=== PATIENT | female | born 1940 | race Caucasian/White ===

== ENCOUNTER 2020-11-19 13:16 | Outpatient (CLI) | payer MEDICARE, SELFPAY ==
--- NOTE | ~2020-11-19 | US_ITS ---
EXAMINATION: US carotid duplex BI DATE: 11/19/2020 14:43 INDICATION: Bilateral carotid bruits TECHNIQUE: Grayscale, color Doppler, and pulsed Doppler images of the cervical carotid arteries were obtained. The degree of vessel stenosis is placed in one of the following categories: normal, <50%, 5 0-69%, >=70% but less than near-occlusion, near-occlusion, or total occlusion. Note that percent sten osis relative to normal distal artery lumen diameter is indirectly measured from velocity measurement s as described by Philippe, et al. Radiology 2003; 229:340-346. Notes: Normal: Peak systolic velocity <125 centimeters/sec and no plaque <50%. Peak systolic velocity <125 ( EDV <40; ICA/CCA PSV ratio <2.0; used these factors only a tandem lesions or low cardiac output or co ntralateral disease) 50-69 %: PSV 125-230 (EDV 40-100; ratio 2-4) >= 70% but less than near occlusion: PSV greater than 230 (EDV > 100; ratio> 4.0) Near Occlusion: PSV that is variable; markedly narrowed lumen Occlusion: Absent flow on color/spectral Doppler and no lumen on magaña scale. COMPARISON: None. FINDINGS: RIGHT: The right common carotid artery (CCA) peak systolic velocity (PSV) is 85 cm/s. The right internal car otid artery (ICA) PSV is 88 cm/s. The right ICA end-diastolic velocity (EDV) is 17 cm/s. The right IC A/CCA PSV ratio is 1.0. The external carotid artery (ECA) PSV is 222 cm/s. There is antegrade flow in the right vertebral artery. LEFT: The left CCA PSV is 80 cm/s. The left ICA PSV is 101 cm/s. The left ICA EDV is 15 cm/s. The left ICA/ CCA PSV ratio is 1.3. The ECA PSV is 94 cm/s. There is antegrade flow in the left vertebral artery. IMPRESSION: 1. Less than 50% stenosis in the right internal carotid artery by sonographic criteria. 2. Less than 50% stenosis in the left internal carotid artery by sonographic criteria. Reviewed, dictated and finalized at location A. IMPRESSION: 1. Less than 50% stenosis in the right internal carotid artery by sonographic eula tsai. 2. Less than 50% stenosis in the left internal carotid artery by sonographic norberto rodríguez.
--- NOTE | ~2020-11-19 | XR_ITS ---
EXAMINATION: XR chest 2V DATE: 11/19/2020 14:38 INDICATION: Left lung crackles and shortness of breath. TECHNIQUE: PA view of the chest was obtained. COMPARISON: None FINDINGS: The lungs are clear with no focal airspace opacities, pulmonary edema, pleural effusion or pneumothor ax. Cardiomegaly. Tapering of the lateral right clavicle likely sequela of prior distal clavicle exci sonja. IMPRESSION: 1. Cardiomegaly. No other acute cardiopulmonary disease. Reviewed, dictated and finalized at location A.
== END 2020-11-19 13:17 | disposition home or self-care (01) ==
LOC: CHSIMG 13:21
PROVIDERS: PCP Internal Medicine; Visit Provider Internal Medicine
DX: R09.89 Other specified symptoms and signs involving the circulatory and respiratory systems (principal)
CPT/HCPCS: 71046; 93880

== ENCOUNTER 2020-11-27 07:47 | Outpatient (CLI) | payer MEDICARE, SELFPAY ==
--- NOTE | 2020-11-27 07:54 | ECHO_ITS ---
Patient Info Name: Felicia Hamilton Age: 80 years : 1940 Gender: Female Ht: 60 in Wt: 138 lbs BSA: 1.65 m2 HR: 65 bpm BP: 201 / 59 mmHg Heart Rhythm: Sinus Rhythm Technical Quality: Good Exam Date: 11/27/2020 7:46 AM Exam Location: [facility] Patient Status: Outpatient Admit Date: 11/27/2020 Staff Ordering Physician: Yasmine Paz MD Clerical Adviser: Maylin Schmitt RDCS Attending Provider: Yasmine Paz MD Referring Physician: Jackson URBINA; Exam Type: CA echo doppler color flow Study Info Indications I51.7 - Cardiomegaly R06.00 - Dyspnea, unspecified Complete two-dimensional, color flow and Doppler transthoracic echocardiogram is performed. Strain analysis performed. History/Risk Factors Hypertension: No Congenital Heart Disease (CHD): No Peripheral Arterial Disease (PAD): No Myocardial Infarction (IN): No Chronic Lung Disease: No Obesity: No Renal Disease: No Coronary Artery Disease (CAD) No Congestive Heart Failure (CHF): No Cardiomyopathy/LV Systolic Dysfunction: No Diabetes Mellitus: No Tobacco Use: Former Cerebrovascular Disease: No Family History: Coronary Artery Disease Deep Vein Thrombosis (DVT): None Dialysis: None Frailty Scale (CSHA): 2: Well Cardiac Arrest: No Summary 1. Complete two-dimensional, color flow and Doppler transthoracic echocardiogram is performed. 2. Left ventricular chamber dimension is normal. 3. Left ventricular systolic function is normal, estimated at 60-65%. 4. There is moderately increased left ventricular wall thickness. 5. The left ventricular diastolic function is abnormal. 6. E/e' 18 is elevated. 7. Global longitudinal strain is normal at -17.0%. 8. Left atrial chamber dimension is moderately enlarged. 9. There is mild to moderate aortic valve regurgitation. 10. There is mild to moderate mitral valve regurgitation. 11. There is trace tricuspid valve regurgitation. 12. No pulmonary hypertension, estimated pulmonary arterial systolic pressure is 35 mmHg. 13. There is small circumferential pericardial effusion. Left Ventricle E/e' 18 is elevated. Global longitudinal strain is normal at -17.0%. Left ventricular chamber dimension is normal. Left ventricular systolic function is normal, estimated at 60-65%. There is moderately increased left ventricular wall thickness. The left ventricular diastolic function is abnormal. Right Ventricle Right ventricular chamber dimension is normal. Right ventricular systolic function is normal. Left Atria Left atrial chamber dimension is moderately enlarged. Right Atria Right atrial chamber dimension is normal. Aortic Valve The aortic valve is trileaflet. There is no aortic valve stenosis. There is mild to moderate aortic valve regurgitation. Pulmonic Valve There is no pulmonic regurgitation. Mitral Valve There is no mitral valve stenosis. There is mild to moderate mitral valve regurgitation. Tricuspid Valve There is trace tricuspid valve regurgitation. No pulmonary hypertension, estimated pulmonary arterial systolic pressure is 35 mmHg. Pericardium/Pleural There is small circumferential pericardial effusion. Inferior Vena Cava Normal inferior vena cava with >50% collapse upon inspiration consistent with normal right atrial pressure, 5 mmHg. Aorta The aortic root size at the sinus of Valsalva is normal. Left Ventricular Outflow T
== END 2020-11-27 07:48 | disposition home or self-care (01) ==
LOC: CHSIMG 07:49
PROVIDERS: PCP Internal Medicine; Visit Provider Internal Medicine
DX: R06.00 Dyspnea, unspecified (principal); I51.7 Cardiomegaly
CPT/HCPCS: 93306

== ENCOUNTER 2023-01-23 08:14 | Outpatient (CLI) | payer MEDICARE, SELFPAY ==
--- NOTE | ~2023-01-23 | US_ITS ---
Limited Abdominal Sonogram: Real-time sonographic imaging of the right upper quadrant was performed. Clinical History: Right upper quadrant pain Findings: The liver appears mildly echogenic/heterogeneous, with no evidence of mass lesion or bile duct dilatation. Main portal vein demonstrates normal direction of flow. The gallbladder is well dist ended, and contains an echogenic, shadowing gallstone. No gallbladder wall thickening. The common fransisco e duct measures 6 mm. The visualized pancreas, aorta, and IVC are unremarkable. Impression: Cholelithiasis. Probable diffuse fatty infiltration of liver. Reviewed, dictated and finalized at location M. Impression: Cholelithiasis. Probable diffuse fatty infiltration of liver.
== END 2023-01-23 08:15 | disposition home or self-care (01) ==
LOC: CHSIMG 08:17
PROVIDERS: PCP Internal Medicine; Visit Provider Internal Medicine
DX: R10.11 Right upper quadrant pain (principal); K80.20 Calculus of gallbladder without cholecystitis without obstruction
CPT/HCPCS: 76705

== ENCOUNTER 2023-02-02 07:35 | Outpatient (CLI) | payer MEDICARE, SELFPAY ==
--- NOTE | ~2023-02-02 | NM_ITS ---
EXAMINATION: NM hepatobiliary w pharm DATE: 02/02/2023 10:16 INDICATION: Right upper quadrant abdominal pain. Cholelithiasis. COMPARISON: Ultrasound 01/23/2023 TECHNIQUE: 5.3 mCi Tc-99m mebrofenin (Choletec) was administered intravenously. Scintigraphic images of the abdomen were obtained for one hour. Then, 1.1 mcg sincalide (Kinevac) IV was administered, an d imaging was continued for 30 minutes. FINDINGS: There is normal clearance of radiotracer from the blood pool. There is homogeneous tracer u ptake by the liver. Activity progresses to the bowel and gallbladder. Gallbladder ejection fraction (GBEF) was 19%. Note that most patients with gallbladder dysfunction have GBEF < 35%, which overlaps with the broad normal range of 10-90%. IMPRESSION: 1. Gallbladder ejection fraction in the lower range of normal. Note that this value overlaps with th e range of values that may be seen with gallbladder dysfunction and/or chronic cholecystitis if there is appropriate clinical correlation. Reviewed, dictated and finalized at location A. IMPRESSION: 1. Gallbladder ejection fraction in the lower range of normal. Note that this value overlaps with the range of values that may be seen with gallbladder dysfu nction and/or chronic cholecystitis if there is appropriate clinical correlatio nToby
== END 2023-02-02 07:36 | disposition home or self-care (01) ==
LOC: CHSIMG 07:37
PROVIDERS: PCP Internal Medicine; Visit Provider Internal Medicine
DX: R10.11 Right upper quadrant pain (principal); K80.20 Calculus of gallbladder without cholecystitis without obstruction
CPT/HCPCS: 78227; A9537; J2805

== ENCOUNTER 2023-02-18 11:21 | Outpatient (CLI) | payer MEDICARE, SELFPAY ==
[2023-02-18 12:31] LABS: Alanine Aminotransferase 16 U/L (6-35); Albumin Level 4.4 g/dL (3.5-5.1); Alkaline Phosphatase 44 U/L (38-126); Amylase 114 U/L (30-110); Aspartate Amino Transferase 26 U/L (14-36); Bilirubin,Total 0.8 mg/dL (0.2-1.3); Lipase 216 U/L (23-300)
== END 2023-02-18 11:22 | disposition home or self-care (01) ==
LOC: ANHSURGERY 11:24
PROVIDERS: PCP Internal Medicine; Visit Provider Surgery
DX: K80.20 Calculus of gallbladder without cholecystitis without obstruction (principal); Z01.818 Encounter for other preprocedural examination
CPT/HCPCS: 36415; 80076; 82150; 83690; 86850; 86900; 86901

== ENCOUNTER 2023-02-23 01:44 | Day surgery (SDC) | payer MEDICARE, SELFPAY ==
[2023-02-12 14:19] VITALS: BMI 24.0
--- NOTE | 2023-02-12 14:49 | PC.NURSE ---
Addendum entered by Yola Sun RN 02/12/23 14:51: TIESHA HUTCHINS AM OF SURGERY Original Note: PRE-OP INSTRUCTIONS, PLEASE READ CAREFULLY Report to the Outpatient Waiting Room, entrance under the green pavilion located off [facility], at time _1000_ on date _02/23/23_. Planned Procedure Time: _1200_. Time changes happen often and if your time is changed the preop area will call you the afternoon before. - You and your visitor will be asked to self-screen and do not enter if you have any COVID symptoms. - A mask is optional within the hospital at this time. Patients may have clear liquids (water, carbonated beverages, clear teas, apple juice) until 3 hours prior to surgery with a maximum of 20 ounces. - No food from midnight until time of surgery Take the following medications with a SIP of water the morning of surgery: _AMLODIPINE, & TYLENOL IF NEEDED__ DO NOT STOP ANY OF YOUR OTHER PRESCRIPTION MEDICATIONS PRIOR TO SURGERY ?EXCEPT THE FOLLOWING Medications to discontinue per ANESTHESIA - _ALL VITAMINS 3 DAYS PRIOR TO SURGERY, Date to take last dose 02/19/23_ Please no make-up, nail frisian, hairspray, perfume, deodorant, or body powder the day of surgery. No jewelry (including any body piercings) or valuables the day of surgery, leave them at home. Please take a shower or bath the night before, or the morning of, surgery with an antibacterial soap. Wear comfortable, loose fitting clothing. - Jewelry must be removed prior to entering the operating room. Rings and piercings that are not removed may be cut off. - The hospital will not accept responsibility for valuables. - Please leave all valuables, including medications, at home the day of surgery. If you are going home after surgery, a licensed otr van cdl truck driver must drive you home. - NO public transportation without another adult if you receive anesthesia. - We recommend that an adult stay with you for 24 hours following discharge. - We also recommend that you do not drive, make important decision, drink alcoholic beverages, or take any drugs that were not prescribed by your health care provider for at least 24 hours after your discharge time. Follow any additional instructions given to you from your surgeon. If you or anyone in your household have experienced Covid symptoms in the past week, please notify your surgeon or the nurse liaison at the phone number below for possible testing. Telephone instructions given to _PATIENT_and asked if any additional questions and then verbalized understanding. Patient advised to call surgeon office or pre surgery nurse liaison [phone] if any additional questions.
[2023-02-23] VITALS (9 sets, daily range): BP systolic 138–176; BP diastolic 37–60; PULSE 65–89; RESP 14–17; TEMP 36.1–36.6; O2SAT 96–100
--- NOTE | 2023-02-23 10:28 | WPDANESEPPF ---
Anes - Initial Pre Proc Eval Procedure: Operation Date: 02/23/23 12:00 Proposed Procedures p Laparoscopic Cholecystectomy, Possible Open - Vijay Rebollar DO Date/Time: 02/23/23 10:28 Surgeon: Vijay Rebollar DO Pre Op Diagnosis: Symp Cholelithiasis Patient Data Age: 82 Gender: F Height: 1.52 m Weight: 55.5 kg Last Vital Signs Temp 36.1 C L 02/23/23 10:12 Pulse 75 02/23/23 10:12 Resp 16 02/23/23 10:12 BP 151/37 H 02/23/23 10:12 Pulse Ox 100 02/23/23 10:12 O2 Del Method Room Air 02/23/23 10:12 Allergies Allergy/AdvReac Type Severity Reaction Status Date / Time No Known Allergies Allergy Verified 02/12/23 14:14 Home Medications Medication Instructions Recorded Confirmed Type amlodipine 10 mg tablet 10 mg PO DAILY 07/03/21 02/12/23 History calcium carbonate 600 mg-vitamin 1 cap PO DAILY 07/03/21 02/12/23 History D3 12.5 mcg (500 unit) capsule (Calcium 600 with Vitamin D3) latanoprost 0.005 % eye drops 1 drp EACH EYE HS 07/03/21 02/12/23 History losartan 50 mg tablet 50 mg PO DAILY 07/03/21 02/12/23 History multivitamin (Daily Multi-Vitamin 1 tablet PO DAILY 07/03/21 02/12/23 History tablet) multivitamin with minerals 1 tablet PO DAILY 07/03/21 02/12/23 History (Hair,Skin and Nails tablet) vitamin B complex (B 1 tablet PO DAILY 07/03/21 02/12/23 History Complex-Vitamin B12 tablet) acetaminophen 650 mg 1,300 mg PO Q8H PRN Pain 02/12/23 02/12/23 History tablet,extended release (Tylenol 8 Hour) pantoprazole 40 mg tablet,delayed 40 mg PO BID 02/12/23 02/12/23 History release (Protonix) Patient hx anesthesia problems: none Family hx anesthesia problems: none Results Review: All pre-operative results and documents have been reviewed as part of the pre-operative evaluation. [facility] Past Medical History Medical History Arthritis Cataract Heart disease History of vaginal delivery Hypertension POAG (primary open-angle glaucoma) Surgical History Surgical History H/O rotator cuff surgery S/P cervical disc replacement [place] teeth removed Family History Family History Mother Carcinoma of colon Father Heart disease Sibling Scleroderma Other Family history of malignant neoplasm Social History Social History Smoking status: Former smoker Tobacco type: cigarettes Second hand tobacco smoke exposure: No Smoking end date: 07/20/09 Additional smoking assessment comments: STATES SMOKED 1/2-1PK/DAY/40-45YRS Alcohol intake: never Substance use: never Substance use type: does not use Living arrangements: alone Spiritual care concerns: No Anes - Eval Final PreProcedure Day of Procedure 02/23/23 10:28 Patient weight: normal Heart: regular rate and rhythm and murmur Lungs: clear to auscultation Airway: Mallampati scale class II Neurological: other (alert) Last oral intake: >/= 8 hours ASA classification: III Emergent: no Anesthetic plan: proceed Anesthesia type and monitoring: general ETT and standard monitoring Results Review: All pre-operative results and documents have been reviewed as part of the pre-operative evaluation. Informed Consent: The patient's anesthetic plan and its attendant risks and benefits were discussed with the patient/family/POA. Questions were solicited and answers provided to the satisfaction of the patient/family/POA.
[2023-02-23] MEDS: LACTATED RINGERS 1,000 ML 30 ML IV CONT (11:17)
[2023-02-23] MEDS: KETOROLAC 15 MG/ML VIAL (*BKC) IV PUSH (11:18)
--- NOTE | 2023-02-23 11:49 | WPDHPUPDATE1 ---
History and Physical Update Update Date/Time: 02/23/23 11:49 History and Physical has been reviewed, including an updated exam of the patient. There are NO changes in the patient's condition. Risks, benefits, and alternatives have been discussed and questions answered. Patient agrees to proceed with procedure.
--- NOTE | 2023-02-23 12:13 | ECG_ITS ---
Measurements Intervals [place] Rate: 80 P: 51 ME: 162 QRS: 18 QRSD: 89 T: 44 QT: 389 QTc: 449 Interpretive Statements SINUS RHYTHM POSSIBLE LEFT ATRIAL ENLARGEMENT [-0.1mV P WAVE IN V1/V2] ST DEVIATION AND MODERATE T-WAVE ABNORMALITY, CONSIDER ANTERIOR ISCHEMIA [-0.1+ mV T WAVE IN V3/V4] ABNORMAL ECG NO PREVIOUS ECG AVAILABLE FOR COMPARISON Electronically Signed On 02-23-2023 14:09:16 CDT by Rod Garcia M.D.
[2023-02-23] MEDS: METOPROLOL TARTRATE INJ 5 MG/5 ML VIAL 2.5 MG IV PUSH (12:41)
[2023-02-23] MEDS: NITROGLYCERIN OINTMENT 1 INCH DOSE TRANSDERM (12:50)
--- NOTE | 2023-02-23 13:16 | SUR.PHASEI ---
DR. ERVIN HERE TO SEE PT AND DTR THANH UPDATED. PT SYMPTOMS OF EPIGASTRIC DISCOMFORT IMPROVED.
--- NOTE | 2023-02-23 13:42 | PM.CNCAR ---
Assessment and Plan Assessment and plan (1) Chest pain: Code(s): R07.9 - Chest pain, unspecified Status: Acute Plan This is an 82-year-old woman who is not known to have coronary disease I follow her in the office because of asymptomatic AI. As she was being prepared for gallbladder surgery today she developed some chest pain and had some precordial T-wave abnormalities which are raising some concern. She is currently asymptomatic. She is not reporting any exertional pain typical of angina. I am going to recommend arranging for her to have a Lexiscan nuclear stress test as an outpatient to screen for evidence significant coronary disease. Obviously today's operation will be canceled pending those findings Rod Garcia MD [facility] History of Present Illness History of Present Illness Consult date/time: 02/23/23 13:42 Reason For Visit: Symp Cholelithiasis Narrative: This is a very pleasant 82-year-old woman who I follow in the office because of aortic valve regurgitation. I am seeing her in the postanesthesia care unit at today because of some chest pain that she experienced ago as she was anticipating cholecystectomy. She is not known to have coronary artery disease prior to this. She follows with me in the office because of aortic regurgitation which she has been known to have for several years. She has of moderate aortic regurgitation with normal left ventricular size and hyperdynamic systolic function and with her valvular disease she has been asymptomatic. I just saw her in the office as it happens on 02/05/2023 at which time she says she was feeling well and was asymptomatic. Today she was admitted to the hospital for a laparoscopic cholecystectomy she was been found to have gallstones that were causing some mid epigastric to right upper quadrant pain off and on for the last couple of months. She says that the symptoms do not occur in exertional fashion. She had some of this pain while she was being taken down the hallway to start her operation an electrocardiogram was done which demonstrated some biphasic precordial T-wave abnormalities which were not seen on prior ECGs. She was placed given some nitro paste and a beta-jessica and she became asymptomatic she feels well now and does not have any complaints PMFSH Past Medical History Medical History Arthritis Cataract Heart disease History of vaginal delivery Hypertension POAG (primary open-angle glaucoma) Surgical History Surgical History H/O rotator cuff surgery S/P cervical disc replacement [place] teeth removed Family History Family History Mother Carcinoma of colon Father Heart disease Sibling Scleroderma Other Family history of malignant neoplasm Social History Social History Smoking status: Former smoker Tobacco type: cigarettes Second hand tobacco smoke exposure: No Smoking end date: 07/20/09 Additional smoking assessment comments: STATES SMOKED 1/2-1PK/DAY/40-45YRS Alcohol intake: never Substance use: never Substance use type: does not use Living arrangements: alone Spiritual care concerns: No Meds Home Medications and Allergies Home Medications Medication Instructions Recorded Confirmed Type amlodipine 10 mg tablet 10 mg PO DAILY 07/03/21 02/23/23 History calcium carbonate 600 mg-vitamin 1 cap PO DAILY 07/03/21 02/23/23 History D3 12.5 mcg (500 unit) capsule (Calcium 600 with Vitamin D3) latanoprost 0.005 % eye drops 1 drp EACH EYE HS 07/03/21 02/23/23 History losartan 50 mg tablet 50 mg PO DAILY 07/03/21 02/23/23 History multivitamin (Daily Multi-Vitamin 1 tablet PO DAILY 07/03/21 02/23/23 History tablet) multivitamin with minerals 1 tablet PO DAILY 07/03/21 0
--- NOTE | 2023-02-23 13:51 | SUR.PHASEII ---
Nitroglycerin patch removed per anesthesia order.
== END 2023-02-23 14:01 | disposition home or self-care (01) ==
PROVIDERS: PCP Internal Medicine; Visit Provider Surgery
PROC: 0FT44ZZ Resection of Gallbladder, Percutaneous Endoscopic Approach (ICD-10-PCS; CPT 47562; principal; 2023-02-23 12:00)
DX: K80.20 Calculus of gallbladder without cholecystitis without obstruction (principal); R07.9 Chest pain, unspecified; R94.31 Abnormal electrocardiogram [ECG] [EKG]; I11.9 Hypertensive heart disease without heart failure; Z87.891 Personal history of nicotine dependence; Z53.09 Procedure and treatment not carried out because of other contraindication
CPT/HCPCS: 47562; 36415; 80076; 82150; 83690; 86850; 86900; 86901; 93005; A9270; J1885; J3010; J7030; J7120

== ENCOUNTER 2023-03-02 11:43 | Inpatient (IN) | payer MEDICARE, SELFPAY ==
[2023-03-02] VITALS (13 sets, daily range): BP systolic 112–165; BP diastolic 46–85; PULSE 65–88; RESP 15–20; TEMP 36.6; O2SAT 93–100; BMI 25.3
--- NOTE | 2023-03-02 11:48 | ECG_ITS ---
Measurements Intervals [place] Rate: 63 P: 61 DC: 158 QRS: 31 QRSD: 90 T: 46 QT: 406 QTc: 416 Interpretive Statements SINUS RHYTHM WITH OCCASIONAL VENTRICULAR PREMATURE COMPLEXES POSSIBLE LEFT ATRIAL ENLARGEMENT [-0.1mV P WAVE IN V1/V2] ST AND T-WAVE ABNORMALITY CONSIDER ANTERIOR ISCHEMIA ABNORMAL ECG NO PREVIOUS ECG AVAILABLE FOR COMPARISON Electronically Signed On 03-02-2023 17:03:01 CDT by Rod Garcia M.D.
[2023-03-02 12:01] LABS: Basophils Percent Auto 0.4 % (0.2-1.2); Eosinophils Absolute Auto 0.1 K/mm3 (0-0.3); Eosinophils Percent Auto 1.3 % (0-4.4); Hematocrit 40.6 % (42.0-52.0); Hemoglobin 13.2 g/dL (14.0-18.0); Immature Granulocyte Absolute 0.03 K/mm3 (0.00-0.031); Immature Granulocyte Percent A 0.4 % (0-0.5); Lymphocytes Absolute Auto 2.95 K/mm3 (0.9-3.2); Lymphocytes Percent Auto 35.5 % (18.3-44.2); Mean Corpuscular HGB Conc 32.5 g/dl (32-36); Mean Corpuscular Hemoglobin 30.2 pg (26-34); Mean Corpuscular Volume 92.9 fl (80-100); Mean Platelet Volume 9.8 fl (7.4-10.4); Monocytes Absolute Auto 0.7 K/mm3 (0.1-0.6); Monocytes Percent Auto 8.4 % (2.6-8.5); Neutrophils Absolute Auto 4.5 K/mm3 (1.3-6.7); Platelet Count Result 254 k/mm3 (150-375); Red Blood Count 4.37 M/mm3 (4.6-6.20); Red Cell Distribution Width 13.2 % (11.5-14.5); White Blood Count 8.3 K/mm3 (4.5-10.0)
[2023-03-02] MEDS: ASPIRIN 81 MG CHEWABLE TABLET 324 MG PO (12:03)
--- NOTE | 2023-03-02 12:11 | ED.CHESTPAIN ---
HPI - Chest Pain General Chief Complaint: Chest Pain Stated Complaint: CP during stress test History of Present Illness HPI narrative: Patient is an 82-year-old female who presents to the ER from the nuclear stress lab after having EKG changes and chest pain. EKG here shows ST elevation. Patient is pain-free at this time. STEMI activated. Patient reports she has been having intermittent pain over the last couple months especially with exertion. She did have some slight chest pain upon arrival to the hospital today prior to her stress test. No dyspnea at this time. No fevers or chills or sweats. Related Data Home Medications Medication Instructions Recorded Confirmed Lactobacillus 1 cap PO DAILY 03/02/23 03/02/23 acidophilus-Bifidobac.animalis 2.5 billion cell capsule (Daily Probiotic) amlodipine 10 mg tablet 10 mg PO DAILY 03/02/23 03/02/23 calcium carb-vit D3-minerals 600 1 tablet PO DAILY 03/02/23 03/02/23 mg calcium-400 unit tablet latanoprost 0.005 % eye drops 1 drp EACH EYE HS 03/02/23 03/02/23 losartan 50 mg tablet 50 mg PO DAILY 03/02/23 03/02/23 ykgolyda-tvou-jntd 8 mg-folic 400 1 tablet PO DAILY 03/02/23 03/02/23 mcg-K 50 mcg-lutein 300 mcg tablet (Centrum Silver Women) multivitamin with minerals 1 tablet PO DAILY 03/02/23 03/02/23 (Hair,Skin and Nails tablet) pantoprazole 40 mg tablet,delayed 40 mg PO BID 03/02/23 03/02/23 release vitamin B complex (B 1 tablet PO DAILY 03/02/23 03/02/23 Complex-Vitamin B12 tablet) Allergies Allergy/AdvReac Type Severity Reaction Status Date / Time No Known Allergies Allergy Verified 03/02/23 11:56 Review of Systems Review of Systems: All systems reviewed & are unremarkable except as noted in HPI and below Constitutional: Constitutional: Denies chills and Denies fever(s) ENT: Denies nasal congestion and Denies sore throat Cardiovascular: Cardiovascular: Reports chest pain, Denies rapid heart rate and Denies radiating jaw, neck or arm pain Respiratory: Respiratory: Denies cough and Denies dyspnea Gastrointestinal: Gastrointestinal: Denies abdominal pain, Denies nausea and Denies vomiting Neurologic: Denies syncope, Denies headache(s), Denies focal weakness and Denies numbness PMFSH Past Medical History Medical History (Updated 03/02/23 @ 20:27 by Kameron Blanco MD) Essential hypertension Surgical History Surgical History (Updated 03/02/23 @ 20:28 by Kameron Blanco MD) No pertinent past surgical history Social History Social History Smoking status: Former smoker Alcohol intake: never Substance use: never Lack of Transportation: No Lack of Food: Never True Current Housing: I Have Housing Concerned About Future Housing: No Difficulty Paying Gas/Electric Bills: No Difficulty Paying for Meds: No Currently Unemployed: No Education: Decline to Answer Difficulty w/ Childcare or Family Care: No Spiritual care concerns: No Exam Narrative: GENERAL: Well-appearing, well-nourished, and in no acute distress. HEAD: Normocephalic, atraumatic. EYES: PERRL and EOMI. ENT: Mucous membranes moist. CHEST: Clear to auscultation. No respiratory distress. HEART: Regular rate and rhythm. Normal peripheral pulses. ABDOMEN: Soft, nontender, nondistended. EXTREMITIES: Normal range of motion. No edema. SKIN: Warm, dry, no rash. NEURO: Alert and oriented x3. PSYCH: Normal mood and affect. Course Course Emergency Course: STEMI activated. Cardiology at bedside have decided to take the patient to the [facility]. Patient received aspirin down here and they will give additional medications in the [facility]. Vital Signs Vital signs: Vital Signs Temperature 97.8 F 03/02/23 11:43 Pulse Rate 73 03/02/23 11:43 Respiratory Rate 18 03/02/23 11:43 Blood Pressure 146/48 H 03/02/23 11:43 Pulse Oximetry 100 03/02/23 11:43 Oxygen Delivery Room Air 03/02/23 11:43 Temperature 97.8 F
[2023-03-02 12:12] LABS: Alanine Aminotransferase 16 U/L (6-50); Albumin Level 4.2 g/dL (3.5-5.1); Alkaline Phosphatase 51 U/L (38-126); Anion Gap 6 mmol/L (8-16); Aspartate Amino Transferase 26 U/L (17-59); Blood Urea Nitrogen 23 mg/dL (9-20); Calcium 9.4 mg/dL (8.4-10.2); Carbon Dioxide 26 mmol/L (22-30); Chloride 105 mmol/L (98-107); Estimated CRCL calculation 36 ml/min; Estimated Glomerular Filt Rate > 60; Glucose 132 mg/dL (65-110); INR 0.9; Potassium 4.3 mmol/L (3.4-5.0); Prothrombin Time 12.8 Seconds (11.1-14.7); Sodium 137 mmol/L (137-145)
--- NOTE | 2023-03-02 12:12 | WPDMODSED ---
Moderate Sedation Note-Pt Data Patient Data Diagnosis: intermittent chest pain consistent with unstable angina Present Complaint: intermittent substernal chest pain Procedure to be performed/Plan: left heart catheterization Allergies Allergy/AdvReac Type Severity Reaction Status Date / Time No Known Allergies Allergy Verified 03/02/23 11:56 Sedation/Anesthesia: No previous sedation/anesthesia problems (including family history). Mod Sed Physical Exam Physical Exam Pre Procedural Exam: Normal: Throat, Airway, Lungs, Heart Size, Heart Rate ( diastolic murmur of aortic regurgitation), Heart Rhythm, Neuro Exam and Extremities and Variation: Appearance ( pleasant elderly lady no distress currently) Hours since solid foods: 12 Hours since liquid intake: 12 Mallampati Classification: class II Internal Medicine - PN: Obj Da Vital Signs Vital Signs: Vital Signs - 24 hr 03/02/23 11:43 03/02/23 11:55 03/02/23 11:59 Temperature 36.6 C Pulse Rate 73 82 76 Respiratory Rate 18 20 Blood Pressure 146/48 H 165/62 H Pulse Oximetry 100 100 Oxygen Delivery Room Air Labs 03/02/23 11:54 03/02/23 11:54 Labs: Laboratory Results - last 24 hr 03/02/23 11:54 WBC 8.3 RBC 4.37 L Hgb 13.2 L Hct 40.6 L MCV 92.9 MCH 30.2 MCHC 32.5 RDW 13.2 Plt Count 254 MPV 9.8 Immature Gran % (Auto) 0.4 Neut % (Auto) 54.0 Lymph % (Auto) 35.5 [place] % (Auto) 8.4 Eos % (Auto) 1.3 Baso % (Auto) 0.4 Lymph # (Auto) 2.95 [place] # (Auto) 0.7 H Eos # (Auto) 0.1 Baso # (Auto) 0.0 Abs Immat Gran (auto) 0.03 Absolute Neuts (auto) 4.5 Absolute Nucleated RBC 0.0 Nucleated RBC % 0.0 Sodium 137 Potassium 4.3 Chloride 105 Carbon Dioxide 26 Anion Gap 6 L BUN 23 H Creatinine 1.00 Estim Creat Clear Calc 36 Estimated GFR > 60 Glucose 132 H Calcium 9.4 Total Bilirubin 1.0 AST 26 ALT 16 Alkaline Phosphatase 51 Total Protein 7.0 Albumin 4.2 ASA Classification/Sedation ASA Classification/Sedation ASA Class: III Emergent: Yes Risks: Risks, benefits and alternatives explained and patient/family accepted plan for sedation. Patient re-evaluated immediately prior to sedation.
[2023-03-02 12:13] LABS: Partial Thromboplastin Time 31.6 SECONDS (22.3-36.8)
--- NOTE | 2023-03-02 12:14 | PM.IMHP ---
H&P: HPI History of Present Illness Date/Time: 03/02/23 12:14 Chief Complaint: chest pain Narrative: this is 82-year-old woman who is known to have aortic valve regurgitation who I see in the office for follow-up of this. She is prior to this not known to have any coronary disease. I saw her in consultation last week in the anesthesia care unit as she was being prepared for cholecystectomy and had some intermittent chest pain associated with some ischemic electrocardiographic findings in the operating room. Her gallbladder surgery was canceled and stress testing was scheduled for today. During Lexiscan nuclear stress testing today she had significant chest pain and had mild precordial ST elevation with reciprocal depression in the inferior leads and for that reason was sent to the emergency room by the office staff. By the time I saw her in the emergency room she was free of this pain and was given some aspirin. Since that conversation her chest pain has been waxing and waning. She is not previous known to have coronary disease prior to this recent symptomatology and presentation. The patient was actually declared a STEMI in the emergency room which I would understand however she is technically in my opinion not in as acute ST-elevation SC as her symptoms has resolved and her electrocardiogram has improved. Review of Systems Review of Systems: ROS unobtainable: Yes unobtainable due to medical condition Meds Home Medications and Allergies Allergies Allergy/AdvReac Type Severity Reaction Status Date / Time No Known Allergies Allergy Verified 03/02/23 11:56 Vital Signs Vital Signs - 24 hr 03/02/23 11:43 03/02/23 11:55 03/02/23 11:59 Temperature 36.6 C Pulse Rate 73 82 76 Respiratory Rate 18 20 Blood Pressure 146/48 H 165/62 H Pulse Oximetry 100 100 Oxygen Delivery Room Air Exam Const: General: uncomfortable Other: Pleasant but anxious elderly lady HENMT: Mouth: Yes moist mucous membranes Eyes: Sclera: sclerae normal Neck: Neck: supple and no JVD Other: carotid pulses are unremarkable bilaterally Resp: Effort & Inspection: normal respiratory effort Auscultation: clear to auscultation bilaterally Cardio: Rate: regular rate Rhythm: regular rhythm Other: soft diastolic murmur of aortic regurgitation is audible GI: GI Palp: Yes Soft to palpation Auscultation: normal bowel sounds Skin: General skin exam: normal color Neuro: Other: alert and oriented x3 Extrem: General: normal to inspection H&P: Results Labs Labs: Short CBC 03/02/23 Range/Units 11:54 WBC 8.3 (4.5-10.0) K/mm3 Hgb 13.2 L (14.0-18.0) g/dL Hct 40.6 L (42.0-52.0) % Plt Count 254 (150-375) k/mm3 BMP 03/02/23 11:54 Sodium 137 Potassium 4.3 Chloride 105 Carbon Dioxide 26 BUN 23 H Creatinine 1.00 Glucose 132 H Calcium 9.4 Liver Function 03/02/23 Range/Units 11:54 Total Bilirubin 1.0 (0.2-1.3) mg/dL AST 26 (17-59) U/L ALT 16 (6-50) U/L Alkaline Phosphatase 51 (38-126) U/L Albumin 4.2 (3.5-5.1) g/dL Assessment and Plan Assessment and plan (1) Unstable angina: Code(s): I20.0 - Unstable angina Status: Acute Plan this is an 82-year-old woman with chronic asymptomatic aortic regurgitation presenting with symptoms and findings on electrocardiogram consistent with unstable angina. We are bringing her to the cardiac catheterization lab this afternoon for angiographic assessment and further recommendations to be forthcoming based on those findings. Rod Garcia MD [facility]
[2023-03-02 12:28] LABS: Troponin I 0.129 ng/mL (0.000-0.034)
--- NOTE | 2023-03-02 13:09 | ECG_ITS ---
Measurements Intervals [place] Rate: 70 P: 59 HI: 162 QRS: 55 QRSD: 98 T: 46 QT: 395 QTc: 428 Interpretive Statements SINUS RHYTHM POSSIBLE LEFT ATRIAL ENLARGEMENT [-0.1mV P WAVE IN V1/V2] ST AND T ABNORMALITY CONSIDER ANTERIOR INJURY WITH RECIPROCAL DEPRESSIONS ABNORMAL ECG COMPARED TO ECG 03/02/2023 11:48:01 T-WAVE ABNORMALITIES OF ISCHEMIA/INJURY ARE MORE PRONOUNCED Electronically Signed On 03-02-2023 17:12:24 CDT by Rod Garcia M.D.
--- NOTE | 2023-03-02 13:18 | WPDCARDPROC ---
Cardiac Cath Procedure Note Date of procedure:: 03/02/23 Performing physician:: Rod Garcia MD Indication:: unstable angina Brief clinical history:: this is an 82-year-old woman known to have chronic aortic valve regurgitation. She has been having intermittent ischemic sounding chest pain for approximately 1-2 months. This has been accelerating. She was scheduled for a Lexiscan nuclear stress test in the office today and following the Lexiscan injection became significantly symptomatic with significant ischemic ECG abnormalities. In this setting an angiogram was recommended in a semi-urgent fashion. Procedure Procedure performed:: Coronary angiography attempted LAD PCI Sedation/Medication given:: fentanyl 50 mg Versed 2 mg case start time 12:22 p.m. case end time 1:06 p.m. sedation provided by Addis Fair RN, trained observer Access site:: right femoral artery Estimated blood loss:: 50 cc Procedure note:: patient was brought to the cardiac catheteriztion lab in the urgent setting described above. The right femoral triangle was prepared and draped in normal. Anesthesia was provided with 1% lidocaine infiltrated locally. Using the modified Seldinger technique a 6 [place] sheath was placed into the femoral artery after this I used a 5 [place] JR4 catheter to engage and inject the right coronary artery in orthogonal projections following this a 5 [place] FL4 catheter was used to engage and inject the left coronary artery in multiple projections. The cineangiograms were then reviewed and PCI of the proximal LAD was recommended and attempted as detailed below. Prior to attempted PCI patient received 180 mg of oral Brilinta. She had received a loading dose of aspirin in the emergency department. She was anticoagulated with bolus and infusion of bivalirudin. Following attempted PCI the procedure was abandoned as detailed below. The sheath was sutured into position with 2-0 silk. The patient was then started on intravenous nitroglycerin at 10 micrograms/minute. The Angiomax was discontinued and the patient was started on intravenous heparin infusion. He will she will be taken to the ICU for stabilization and plans will be made for transfer to a higher level of care for a difficult and challenging PCI in the proximal LAD. Findings:: hemodynamics: Central aortic pressure at the start of the case was 178 over 70. The left main coronary artery is medium in caliber and patent. The left anterior descending proximally is a large caliber artery. There is segb-vj-aytsxeur calcification in the proximal LAD proximally there was a very high-grade relatively discrete 99% stenosis with RENETTA 2 flow distal to this. The LAD distal to this very high-grade subtotal lesion is angiographically mildly disease. The circumflex is a medium caliber artery giving rise to the marginal branches. There are mild diffuse luminal irregularities circumflex but no significant lesions are seen. The right coronary artery is dominant to the posterior circulation and is large. It is quite tortuous but free of significant stenosis there are mild luminal irregularities noted In a diffuse fashion. intervention: The left main coronary artery was engaged using a 6 [place] CLS 3.5 guiding catheter. I used a 0.014 BMW guidewire advanced into the LAD and with some challenge was able to traverse the high-grade lesion and advanced the guidewire into the distal apical portion of the LAD. I then attempted to pre dilate this lesion with a 3 x 20 mm PTCA balloon. The balloon however would not even track into the very tight lesion due to proximal disease and calcification which angiographically was not severe. I then attempted to use a GuideLiner for further support. The GuideLiner was advanced over the same guidewire close to the high-grade stenosis. Despite this support the PTCA balloon would also not cross the lesion. Lastly I attempted to
--- NOTE | 2023-03-02 13:26 | PC.NURSE ---
This patient, Felicia Hamilton, was admitted to Intensive Care Unit-9. Patient/family oriented to hospital policies and general routines including ID bracelet, bed and alarms, visiting hours, pain management, procedures, bathroom and other care routines, personal items, smoking policy, room service/diet, and visiting hours. Information on how to activate the Rapid Response Team has been discussed. Patient/Family are encouraged to report perceived risks to care and to ask questions if they do not understand what they are told or what they should do.
--- NOTE | 2023-03-02 14:05 | WPDCNINT ---
Assessment and Plan Assessment and plan (1) Unstable angina: Code(s): I20.0 - Unstable angina Status: Acute Assessment and Plan: Patient underwent a Lexiscan on 03/02/2023 and was symptomatic with ischemic EKG changes, patient was taken to the clinical laboratory scientist which she had angiography done which showed severe single-vessel coronary artery disease with proximal 99% stenosis in the LAD, intervention was unsuccessful secondary to tight lesion due to proximal disease and calcification. Intra-aortic balloon pump was not inserted for stabilization because it would have worsened aortic regurgitation. -cardiology has placed the patient on heparin infusion nitroglycerin infusion -patient be transferred to [facility] for high risk coronary intervention (2) Essential hypertension: Code(s): I10 - Essential (primary) hypertension Status: Acute Assessment and Plan: Will hold amlodipine and losartan at this time Plan DVT prophylaxis: Heparin infusion Stress ulcer prophylaxis: Will add Protonix since patient is on pantoprazole at home Nutrition: Heart healthy diet per cardiology Code Status: Full code Critical Care Time Spent: 46 minutes Discussed with patient and her daughter at bedside and updated the patient's condition and plan of care. They are aware that she will be transferring a larger [facility] for high-risk coronary intervention. Due to a high probability of clinically significant, life threatening deterioration, the patient required my highest level of preparedness to intervene emergently and I personally spent this critical care time directly and personally managing the patient. This critical care time included obtaining a history; examining the patient; pulse oximetry; ordering and review of studies; arranging urgent treatment with development of a management plan; evaluation of patient's response to treatment; frequent reassessment; and discussions with other providers. It was exclusive of separately billable procedures and treating other patients and teaching time. Please see Assessment and Plan section and the rest of the note for further information on patient assessment and treatment This dictation may have been done utilizing a voice recognition system. Attempts have been made to correct errors. However, there may be uncorrected grammatical, spelling, and recognitions errors present. Counselor Education Professor Consult Note Consult date: 03/02/23 Reason for consult: Unstable angina status post coronary Angiography, severe single-vessel coronary artery disease with proximal 99% stenosis in the LAD, intervention was unsuccessful secondary to tight lesion due to proximal disease and calcification. HPI: Felicia Hamilton is a 82 year old male with a history of aortic valve regurgitation, she has been having intermittent ischemic chest pain for approximately 2 months. She was scheduled to have a cholecystectomy and on her way to the OR developed some chest pain, surgery was aborted, patient underwent a Lexiscan on 03/02/2023 and was symptomatic with ischemic EKG changes, patient was taken to the clinical laboratory scientist which she had angiography done which showed severe single-vessel coronary artery disease with proximal 99% stenosis in the LAD, intervention was unsuccessful secondary to tight lesion due to proximal disease and calcification. Intra-aortic balloon pump was not inserted for stabilization because it would have worsened aortic regurgitation. Procedure was aborted and patient is being transferred to [facility] high risk coronary intervention. Patient seen and examined in the ICU upon arrival, currently chest pain-free, she denies any shortness of breath, nausea, diaphoresis, abdominal pain. Patient is hemodynamically stable, on room air with adequate O2 sats. Review of Systems Review of Systems: All systems reviewed & are unremarkable except as noted in HPI and below PMFSH Social History Social Hist
[2023-03-02] MEDS: NITROGLYCERIN/D5W 200 MCG/ML 50 MG/250 ML BTL IV CONT (14:14)
[2023-03-02] MEDS: HEPARIN SOD/D5W 100 UNITS/ML 25,000 UNITS/250 ML BAG 8 UNITS IV CONT (14:15)
[2023-03-02] MEDS: SODIUM CHLORIDE 0.9% IV 1,000 ML 125 ML IV CONT (14:18)
[2023-03-02 14:52] LABS: Basophils Percent Auto 0.3 % (0.2-1.2); Eosinophils Percent Auto 0.3 % (0-4.4); Hematocrit 41.2 % (42.0-52.0); Hemoglobin 13.4 g/dL (14.0-18.0); Immature Granulocyte Absolute 0.04 K/mm3 (0.00-0.031); Immature Granulocyte Percent A 0.4 % (0-0.5); Lymphocytes Absolute Auto 1.62 K/mm3 (0.9-3.2); Mean Corpuscular HGB Conc 32.5 g/dl (32-36); Mean Corpuscular Volume 92.2 fl (80-100); Mean Platelet Volume 10.1 fl (7.4-10.4); Monocytes Absolute Auto 0.4 K/mm3 (0.1-0.6); Monocytes Percent Auto 3.7 % (2.6-8.5); Neutrophils Absolute Auto 7.4 K/mm3 (1.3-6.7); Neutrophils Percent Auto 78.3 % (45.5-73.1); Platelet Count Result 253 k/mm3 (150-375); Red Blood Count 4.47 M/mm3 (4.6-6.20); Red Cell Distribution Width 13.1 % (11.5-14.5); White Blood Count 9.5 K/mm3 (4.5-10.0)
[2023-03-02 15:06] LABS: INR 1.4; Prothrombin Time 17.4 Seconds (11.1-14.7)
--- NOTE | 2023-03-26 14:30 | PM.TDS ---
Transfer Discharge Sum: Prov Provider Date of admission: 03/02/23 11:55 Primary care physician: Yasmine Paz MD Admitting clinician: Rod Garcia MD Attending physician on admission: Rod Garcia Consults: 03/02/23 13:09 Cardiopulmonary Rehabilitation Consult Routine Comment: Consult Plan: Evaluate for Eligibility Attending physician on discharge: Rod Garcia Discharging clinician: Rod Garcia Anticipated date of transfer: 03/02/23 DS: Admitting Diagnosis Discharge Date 03/02/23 Admitting Diagnosis Accelerating/unstable angina DS: Discharge Diagnosis Discharge Diagnosis (1) Coronary artery disease due to calcified coronary lesion: Code(s): I25.10 - Atherosclerotic heart disease of [place] coronary artery without angina pectoris; I25.84 - Coronary atherosclerosis due to calcified coronary lesion Status: Acute Plan Transfer to [facility] for Advanced percutaneous revascularization Transfer Discharge Sum: Med Medications Active and Home Medications: Home Medications amlodipine 10 mg tablet 10 mg PO DAILY 07/03/21 [History Confirmed 02/23/23] calcium carbonate 600 mg-vitamin D3 12.5 mcg (500 unit) capsule (Calcium 600 with Vitamin D3) 1 cap PO DAILY 07/03/21 [History Confirmed 02/23/23] latanoprost 0.005 % eye drops 1 drp EACH EYE HS 07/03/21 [History Confirmed 02/23/23] losartan 50 mg tablet 50 mg PO DAILY 07/03/21 [History Confirmed 02/23/23] multivitamin (Daily Multi-Vitamin tablet) 1 tablet PO DAILY 07/03/21 [History Confirmed 02/23/23] multivitamin with minerals (Hair,Skin and Nails tablet) 1 tablet PO DAILY 07/03/21 [History Confirmed 02/23/23] vitamin B complex (B Complex-Vitamin B12 tablet) 1 tablet PO DAILY 07/03/21 [History Confirmed 02/23/23] acetaminophen 650 mg tablet,extended release (Tylenol 8 Hour) 1,300 mg PO Q8H PRN Pain 02/12/23 [History Confirmed 02/23/23] pantoprazole 40 mg tablet,delayed release (Protonix) 40 mg PO BID 02/12/23 [History Confirmed 02/23/23] Lactobacillus acidophilus-Bifidobac.animalis 2.5 billion cell capsule (Daily Probiotic) 1 cap PO DAILY 03/02/23 [History Confirmed 03/02/23] amlodipine 10 mg tablet 10 mg PO DAILY 03/02/23 [History Confirmed 03/02/23] calcium carb-vit D3-minerals 600 mg calcium-400 unit tablet 1 tablet PO DAILY 03/02/23 [History Confirmed 03/02/23] latanoprost 0.005 % eye drops 1 drp EACH EYE HS 03/02/23 [History Confirmed 03/02/23] losartan 50 mg tablet 50 mg PO DAILY 03/02/23 [History Confirmed 03/02/23] pqcxekxy-rcow-sphj 8 mg-folic 400 mcg-K 50 mcg-lutein 300 mcg tablet (Centrum Silver Women) 1 tablet PO DAILY 03/02/23 [History Confirmed 03/02/23] multivitamin with minerals (Hair,Skin and Nails tablet) 1 tablet PO DAILY 03/02/23 [History Confirmed 03/02/23] pantoprazole 40 mg tablet,delayed release 40 mg PO BID 03/02/23 [History Confirmed 03/02/23] vitamin B complex (B Complex-Vitamin B12 tablet) 1 tablet PO DAILY 03/02/23 [History Confirmed 03/02/23] Transfer Discharge Sum: Hosp Hospital Course Hospital course: Felicia Hamilton is a 82 year old female not previously known to have significant coronary disease. She is known to have chronic aortic valve regurgitation. Patient has been having accelerating symptoms consistent with ischemia of recent onset. A Lexiscan nuclear stress test in the office on the morning of admission resulted in ongoing ischemic symptoms and ischemic ECG abnormalities. She was therefore sent to the emergency room and admitted to the hospital. Following stabilization she underwent diagnostic left heart catheterization. She was found to have critical stenosis in the proximal LAD. The vessel was significantly calcified. PCI of this lesion was attempted unsuccessfully. The details of this are in the separately dictated laborer chemical processing note. In summary the LAD lesion was successfully crossed with guidewire but was of such the nature and no balloon catheter which crossed t
== END 2023-03-02 18:06 | disposition short-term general hospital (02) | DRG 287 ==
LOC: ANHED 12:01 → ANHICU 12:36
PROVIDERS: Nurse Practitioner; Admitting Provider Specialist; Emergency Provider Emergency Medicine; PCP Internal Medicine; Visit Provider Specialist
PROC: 4A023N7 Measurement of Cardiac Sampling and Pressure, Left Heart, Percutaneous Approach (ICD-10-PCS; CPT 93452; principal; 2023-03-02 12:00)
PROC: 02703ZZ Dilation of Coronary Artery, One Artery, Percutaneous Approach (ICD-10-PCS; CPT 92920; 2023-03-02 12:00)
DX: I25.110 Atherosclerotic heart disease of native coronary artery with unstable angina pectoris (principal); I10 Essential (primary) hypertension; I35.1 Nonrheumatic aortic (valve) insufficiency; Z87.891 Personal history of nicotine dependence; Z53.8 Procedure and treatment not carried out for other reasons
CPT/HCPCS: 36415; 80053; 84484; 85025; 85610; 85730; 92920; 93005; 93458; 99291; A9270; C1725; C1769; C1887; C1894; J1644; J2305; J7030

== ENCOUNTER 2023-05-14 15:30 | Outpatient (CLI) | payer MEDICARE, SELFPAY ==
--- NOTE | ~2023-05-14 | XR_ITS ---
XR chest 2V DATE: 05/14/2023 16:05 INDICATION: Cough TECHNIQUE: 2 views COMPARISON: 11/19/2020 2 view chest FINDINGS: Cardiomegaly. Coronary artery stents. Aortic arch and descending thoracic and abdominal aortic calcification. Cardiomegaly. No hilar or mediastinal enlargement. Moderate bilateral hyperinflation suggesting obstructive airways disease. No pulmonary infiltrate or consolidation, pleural effusion or pulmonary vascular congestion or pneumothorax. Osteopenia. Mild thoracolumbar dextro scoliosis. Degenerative changes of the thoracic and lumbar spin e. IMPRESSION: Cardiomegaly, coronary artery stents, aortic atherosclerosis Suspected COPD No active pulmonary disease Reviewed, dictated and finalized at location A.
== END 2023-05-14 15:31 | disposition home or self-care (01) ==
LOC: CHSIMG 15:35
PROVIDERS: PCP Internal Medicine; Visit Provider Nurse Practitioner Family
DX: J06.9 Acute upper respiratory infection, unspecified (principal); I51.7 Cardiomegaly; Z95.1 Presence of aortocoronary bypass graft; I70.0 Atherosclerosis of aorta
CPT/HCPCS: 71046

== ENCOUNTER 2023-07-10 09:30 | Outpatient (RCR) | payer MEDICARE, SELFPAY | END 2023-07-17 15:51 | disposition home or self-care (01) | PROVIDERS: PCP Internal Medicine; Visit Provider Specialist | DX: Z95.5 Presence of coronary angioplasty implant and graft (principal) | CPT/HCPCS: 93798 ==

== ENCOUNTER 2023-10-06 12:09 | Outpatient (CLI) | payer MEDICARE, SELFPAY ==
--- NOTE | ~2023-10-06 | US_ITS ---
EXAMINATION: US soft tissue LE LT DATE: 10/06/2023 12:28 INDICATION: Nodule at the left calf TECHNIQUE: Multiple grayscale and Doppler ultrasound images of the region of concern at the posterior left calf were obtained. COMPARISON: None FINDINGS: There is a cluster of 3 essentially anechoic lesions with peripheral hyperechoic halos located in the subcutaneous fat at the region of concern. There is no internal vascular flow or surrounding hyperem ia on color Doppler. The underlying musculature is unremarkable. IMPRESSION: 1. Cluster of 3 subcentimeter lesions in the subcutaneous fat at the region of concern. These appear nearly anechoic suggesting cystic lesion such as small abscesses or hematoma. There is no posterior a coustic enhancement as would be expected with cystic lesion although this could be due to the relativ adonis superficial location relative to the focal zone. Solid neoplasm however could not be absolutely e xcluded. Correlate with clinical history and if indicated could consider ultrasound-guided biopsy for more definitive determination. Reviewed, dictated and finalized at location A. IMPRESSION: 1. Cluster of 3 subcentimeter lesions in the subcutaneous fat at the region of concern. These appear nearly anechoic suggesting cystic lesion such as small ab scesses or hematoma. There is no posterior acoustic enhancement as would be exp ected with cystic lesion although this could be due to the relatively superfici al location relative to the focal zone. Solid neoplasm however could not be abs olutely excluded. Correlate with clinical history and if indicated could consid er ultrasound-guided biopsy for more definitive determination.
== END 2023-10-06 12:10 | disposition home or self-care (01) ==
LOC: CHSIMG 12:12
PROVIDERS: PCP Internal Medicine; Visit Provider Internal Medicine
DX: R22.42 Localized swelling, mass and lump, left lower limb (principal)
CPT/HCPCS: 76882

== ENCOUNTER 2023-12-04 10:11 | Outpatient (CLI) | payer MEDICARE, SELFPAY ==
--- NOTE | ~2023-12-04 | XR_ITS ---
Left wrist Technique: PA, oblique, lateral, and ulnar deviation views were obtained. Clinical History: Pain Findings: No acute fracture or dislocation is seen. Osseous alignment is anatomic. Joint spaces are p reserved. Soft tissues are unremarkable. Impression: Unremarkable left wrist radiographs. Reviewed, dictated and finalized at location . Impression: Unremarkable left wrist radiographs.
== END 2023-12-04 10:12 | disposition home or self-care (01) ==
LOC: CHSIMG 10:13
PROVIDERS: PCP Internal Medicine; Visit Provider Internal Medicine
DX: S69.92XA Unspecified injury of left wrist, hand and finger(s), initial encounter (principal)
CPT/HCPCS: 73110

== ENCOUNTER 2024-07-01 10:32 | Outpatient (CLI) | payer MEDICARE, SELFPAY ==
--- NOTE | ~2024-07-01 | XR_ITS ---
EXAMINATION: XR_[id number]_CR DATE: 07/01/2024 10:49 INDICATION: Neck pain. TECHNIQUE: 4 views of cervical spine were obtained. COMPARISON: None. FINDINGS: There is 2 mm anterolisthesis of C7 on T1. There is 6 degrees levocurvature of cervical spi ne. Vertebral body heights are normal. There is moderately decreased disc height at C2-C3, C3-C4, C4- C5, and C6-C7. There is interbody fusion at C5-C6. There is multilevel severe facet joint osteoarthri tis. There is mild central canal stenosis at C2-C3, C3-C4, C4-C5, and C6-C7. No prevertebral soft tis ny swelling. IMPRESSION: 1. Moderate cervical spondylosis. 2. Anterior fusion at C5-C6. Reviewed, dictated and finalized at location A. 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
== END 2024-07-01 10:33 | disposition home or self-care (01) ==
LOC: CHSIMG 10:35
PROVIDERS: PCP Internal Medicine; Visit Provider Internal Medicine
DX: M54.2 Cervicalgia (principal); M43.02 Spondylolysis, cervical region; Z98.1 Arthrodesis status
CPT/HCPCS: 72040

== ENCOUNTER 2024-07-06 10:39 | Outpatient (RCR) | payer MEDICARE, SELFPAY ==
--- NOTE | 2024-07-06 12:03 | OPREHPOC ---
Outpatient Therapy Plan of Care This is a Multidisciplinary Plan of Care that may contain components documented by all disciplines (PT, OT, and ST.) PT Problem 1 PT Problem #1 Knowledge Deficit PT Goal 1 Goal / Goal Update The patient will be independent in a home exercise program. Target Visit 4 PT Problem 2 PT Problem #2 Pain PT Goal 1 Goal / Goal Update The patient will report no greater than 2/10 left cervical and shoulder pain with turning her head and lifting with the left UE. Target Visit 8 PT Problem 3 PT Problem #3 Impaired Functional Mobility PT Goal 1 Goal / Goal Update 1. The patient will demonstrate 10% or less self perceived disability per the Neck Index questionnaire. 2. The patient will demonstrate negative special tests for left shoulder impingement. Target Visit 8 PT Problem 4 PT Problem #4 Impaired Range of Motion PT Goal 1 Goal / Goal Update The patient will improve left cervical rotation AROM by 10 degrees to improve mobility for safe driving. Target Visit 8
--- NOTE | 2024-07-06 12:04 | PTOPEVAL1 ---
Assessment and note entered by Jeriac Tamayo, PT Evaluation Information Assessment Status Evaluation ICD-10 Condition Codes (PT) Cervicalgia M54.2,Radiculopathy, cervical M54.13 Onset 03/20/24 Subjective Information Felicia Hamilton reports she has been having pain in her left neck and shoulder since March 2024 after using a leaf blower for a long period. She has a history of a C5-6 fusion performed in the and recent x-rays of the cervical spine showed osteoarthritis and cervical spondylosis. She reports pain in the left neck and shoulder pain in March that worsened in April. She does have trouble sleeping due to pain. She has used ice with some relief and occasionally tylenol for pain. She notes difficulty turning her head and lifting with her left arm. Reported Pain Level Pain Score 1: Self Report Assessment PT Clinical Summary Felicia Hamilton presents with left cervical and shoulder pain that started in March of 2024 after using a leaf blower. She has a history of a C5-6 fusion in the and recent cervical x- rays showed osteoarthritis. She has difficulty with turning her head and lifting with her left arm. She objectively demonstrates decreased cervical AROM, decreased left shoulder strength, positive special tests consistent with shoulder impingement, and palpable tension in the left upper trapezius. She will benefit from skilled PT to address these limitations. Plan of Care Interventions Electrical Stimulation,Hot Pack/Cold Pack,Manual Therapy,Mechanical Traction,Neuro Re-education, Patient/Caregiver Education,Therapeutic Activities ,Therapeutic Exercise PT Services Indicated Yes Treatment Frequency and 2 times a week for 8 visits Duration These treatments will address the objective and functional deficits as defined above. The patient will be advanced safely and appropriately in order for the patient to progress towards his/her prior level of function. Additional exercises will be introduced and as well as a comprehensive home exercise program upon discharge, if needed, ?to ensure carryover of functional gains achieved in the clinic. This treatment plan has been reviewed and agreement upon by the patient.
--- NOTE | 2024-07-26 17:30 | PCPTNOTE ---
Patient called & cancelled scheduled appointment this date due to the weather.
--- NOTE | 2024-07-28 12:24 | OPREHPOC ---
Outpatient Therapy Plan of Care This is a Multidisciplinary Plan of Care that may contain components documented by all disciplines (PT, OT, and ST.) PT Problem 1 PT Problem #1 Knowledge Deficit PT Goal 1 Goal / Goal Update The patient will be independent in a home exercise program. Target Visit 4 Progress Met PT Problem 2 PT Problem #2 Pain PT Goal 1 Goal / Goal Update The patient will report no greater than 2/10 left cervical and shoulder pain with turning her head and lifting with the left UE. Target Visit 8 Progress Met PT Problem 3 PT Problem #3 Impaired Functional Mobility PT Goal 1 Goal / Goal Update 1. The patient will demonstrate 10% or less self perceived disability per the Neck Index questionnaire. 2. The patient will demonstrate negative special tests for left shoulder impingement. Target Visit 8 Progress Met PT Problem 4 PT Problem #4 Impaired Range of Motion PT Goal 1 Goal / Goal Update The patient will improve left cervical rotation AROM by 10 degrees to improve mobility for safe driving. Target Visit 8 Progress Met
--- NOTE | 2024-07-28 12:24 | PTOPDC ---
Assessment and note entered by Jerica Tamayo, PT Evaluation Information Assessment Status Discharge ICD-10 Condition Codes (PT) Cervicalgia M54.2,Radiculopathy, cervical M54.13 Onset 03/20/24 Subjective Information Nino reports her neck is feeling much better. She notes significantly less popping and minimal to no pain. She is sleeping better and is able to move her head easier. Reported Pain Level Pain Score 0: Self Report Assessment PT Clinical Summary Felicia Hamilton has completed 7 skilled PT visits for cervicalgia and radiculopathy. She is reporting minimal to no pain, less stiffness, less popping, and improved mobility since initiating PT. She objectively demonstrates improved cervical AROM, improved shoulder strength, and resolved tenderness. She has met all goals and will be discharged to an independent HEP. Plan of Care PT Services Indicated No
== END 2024-07-28 13:08 | disposition home or self-care (01) ==
LOC: CHSPT 10:39
PROVIDERS: Visit Provider Internal Medicine
DX: M54.2 Cervicalgia (principal); M54.12 Radiculopathy, cervical region
CPT/HCPCS: 97014; 97110; 97140; 97161; G0283

== ENCOUNTER 2024-12-05 15:05 | Outpatient (CLI) | payer MEDICARE, SELFPAY ==
--- NOTE | ~2024-12-05 | XR_ITS ---
EXAM: XR ankle RT min 3V DATE: 12/05/2024 15:21 HISTORY: right ankle injury S99.911 A, injury 11/24/24, rolled ankle . COMPARISON: None available. FINDINGS: Osteopenia. No fracture or dislocation. No lytic or blastic lesion. Mild Achilles and plan tar enthesopathy. Mild calcification of the plantar fascia. No erosion or periosteal change. Small an kle joint effusion. Soft tissues within normal limits. IMPRESSION: No acute osseous finding in the right ankle. Reviewed, dictated and finalized at location K.
--- OUTSIDE RECORDS SUMMARY | 2024-12-05 15:09 | XMS_ITS | Referral Summary ---
Author Organization [facility] Address [facility] [place] [address] Care Team Providers Care Truss Driver Helper Name Role Phone Yasmine Paz MD Primary Care Provider [phone] Encounters Date Type Department Care Team Description 09/16/2024 4:00 PM FLOOR SURFACER Office Visit [facility] Cardiology [address] [place] [address] [address] [place] [address] Rod Garcia MD Nonrheumatic aortic valve insufficiency (Primary Dx); Status post insertion of drug eluting coronary artery stent 09/15/2024 Telephone [facility] Cardiology [address] [place] [phone] Rod Garcia MD from Last 3 Months Allergies No known active allergies Medications folic acid/multivit-m in/lutein (CENTRUM SILVER ORAL) Take 1 tablet by mouth daily Active calcium carbonate-vitam in D3 1500 mg (600 mg elemental) -200 units per tablet Take 1 tablet by mouth daily Active cyanocobalamin (Vitamin B-12) 500 mcg tabletIndicatio ns:Prevention of Vitamin B12 Deficiency Take 1 tablet (500 mcg total) by mouth daily Active latanoprost (XALATAN) 0.005 % ophthalmic solution Administer 1 drop into both eyes nightly Active losartan (COZAAR) 50 mg tablet Take 1 tablet (50 mg total) by mouth daily 2 Active aspirin 81 mg enteric coated tabletIndicatio ns:myocardial infarction prevention Take 1 tablet (81 mg total) by mouth daily 30 tablet 3 06/09/20 25 Active rosuvastatin (CRESTOR) 20 mg tablet Take 1 tablet (20 mg total) by mouth nightly 30 tablet 3 06/09/20 25 Active nitroglycerin (NITROSTAT) 0.4 mg SL tabletIndicatio ns:Angina Place 1 tablet (0.4 mg total) under the tongue every 5 (five) minutes as needed for chest pain 30 tablet 3 Active amLODIPine (NORVASC) 10 mg tablet Take 7.5 mg by mouth daily 4 Active clopidogreL (PLAVIX) 75 mg tablet TAKE 1 TABLET BY MOUTH EVERY DAY 90 tablet 2 4 Active metoprolol XL (TOPROL-XL) 25 mg extended release tablet Take 1 tablet (25 mg total) by mouth daily 90 tablet 2 5 09/16/19 26 Active Active Problems Problem Noted Date Diagnosed Date Status post insertion of drug eluting coronary a rtery stent 04/02/2023 Calculus of gallbladder with acute on chronic cholecystitis without obstruction 03/04/2023 ACS (acute coronary syndrome) 03/03/2023 STEMI (ST elevation myocardial infarction) 03/02 Sensorineural hearing loss (SNHL) of both ears 1 07/20/2021 Assessment & Plan (05/20/2022 2:01 PM CDT): She has a rgdf-kf-dxqjsddd bilateral sensorineural hearing loss. I talked with her quite a bit about this. I think ultimately she probably needs hearing aids and we discussed that. When I saw her several years ago she had hearing loss also and I treated with a steroid pack. She did not have an audiogram at the time but it did help. I recommended that we treat again with a steroid but if she continues to have significant hearing difficulty again I would recommend hearing aids. She understands. She would like to pursue that also. I will see her as needed. Essential hypertension 01/24/2021 Nonrheumatic aortic valve insufficiency 01/25/20 Nonrheumatic mitral valve regurgitation 01/25/20 Social History Tobacco Use Types Packs/Day Years Used Date Smoking Tobacco: Former Cigarettes Q uit: 2013 Smokeless Tobacco: Never Tobacco Cessation:Counseling Given: Not Answered Comments:Biggest mistake of my life Social Connection and Isolat ion Panel [NHANES] Answer Date Recorded In a typical week, how many times do you talk on the phone with family, friends, or neighbors? More than three times a week 03/03/2023 How often do you get togethe r with friends or relatives? More than three times a week 03/03/2023 How often do you attend chur ch or episcopalian services? Never 03/03/2023 Do you belong to any clubs o r organizations such as orthodox groups, unions, fraternal or athletic groups, or school groups? No 03/03/2023 How often do you attend meet ings of the clubs or organizations you belong to? Never 03/03/2023 Are you , , di vorced, , never , or living with a partner? 03/03/2023 Overall Financial Resource Strain (CARDIA) Answe r Date Recorded How hard is it for you to pa y for the very basics like food, housing, medical care, and heating? Not hard at all 03/03/2023 PRAPARE - Transportation Answer Date Re corded In the past 12 months, has l ack of transportation kept you from medical appointments or from getting medications? No 02/17 In the past 12 months, has l ack of transportation kept you from meetings, work, or from getting things needed for daily living? No 03/03/2023 Housing Stability Vital Sign Answer Boom e Recorded In the last 12 months, was t here a time when you were not able to pay the mortgage or rent on time? No 03/03/2023 In the last 12 months, how many places have you lived? 1 03/03/2023 In the last 12 months, was t here a time when you did not have a steady place to sleep or slept in a detention (including now)? No 03/03/2023 Personal Safety Answer Date Recorded Have you ever been in or are you currently in a harmful physical or emotional relationship or is someone making you feel afraid or unsafe? Denies 03/02/2023 Comments Unknown Sex and Gender Information Value Date Recorded Sex Assigned at Not on file Legal Sex Female 8:52 AM CDT Gender Identity Female 07/25/2021 1:37 PM FLOOR SURFACER Sexual Orientation Straight 07/25/2021 1: 37 PM FLOOR SURFACER Last Filed Vital Signs Vital Sign Reading Time Taken Comments Blood Pressure 160/54 09/16/2024 3:54 PM FLOOR SURFACER Pulse 77 09/16/2024 3:54 PM FLOOR SURFACER Temperature 36.9 C (98.5 F) 03/04/2023 8:10 AM CDT Respiratory Rate 16 03/04/2023 8:10 AM CDT Oxygen Saturation 96% 09/16/2024 3:54 PM FLOOR SURFACER Inhaled Oxygen Concentration - - Weight 54.7 kg (120 lb 8 oz) 09/16/2024 3:54 PM FLOOR SURFACER Height 151.1 cm (4' 11.5 ) 09/16/2024 3:54 PM CS T Body Mass Index 23.93 09/16/2024 3:54 PM FLOOR SURFACER Plan of Treatment Not on file Medical Devices Implanted Type Area Track Oiler Device Identifier Shelf Expiration Date Model / Serial / Lot [employer] [place] [employer] Camilla Stent Coronary Drug Eluting Rapid Exchange Synergy Megatron 3.72r50wl [place] Chromium [id number] - [id number] - [id number] Implanted:Qty : 1 on 03/03/2023 by Morgan Cassidy MD at [facility] Stent Left: Anterior Descending Cornary Artery [employer] Camilla 03/11/2023 [id number] / [id number] / [id number] [employer] Synergy Xd Monorail 2.5mm 48mm 144cm Delivery System 1 Access [id number] - [id number] - [id number] Implanted:Qty : 1 on 03/03/2023 by Morgan Cassidy MD at [facility] Stent Left: Anterior Descending Cornary Artery [employer] [employer] Camilla 07/22/2024 [id number] / [id number] / [id number] Vas[employer] Ltd Device 6fr Closure Celt Acd Vascular Sterile Latex Free Disposable [facility]-06 - [id number] - [id number] Implanted:Qty : 1 on 03/03/2023 by Morgan Cassidy MD at [facility] Vascular Closure Device Right: Common Femoral Artery [employer]TD 07/30/2025 [facility]-06 / [id number] / [id number] Procedures Procedure Name Priority Date/Time Associated Diagnosis Comments ELECTROCARDIOGRAM REPORT Routine 025 3:15 PM FLOOR SURFACER Nonrheumatic aortic valve insufficiency from Last 3 Months Results * Electrocardiogram Report (09/16/2024 3:15 PM FLOOR SURFACER) Rod Garcia MD ECG ORDERABLES Final Re sult from Last 3 [place] [address] UHC MEDICARE ADVANTAGE [facility] MEDIC[facility] Address: [address] [address] [place] [address] [facility] MDCR HMO REF [facility] MEDICARE Address: [address] [address] [place] [address] UHC MEDICARE ADVANTAGE [facility] MEDICARE Address: [address] [address] Advance Directives For more information, please contact: [phone] * Full Code (Latest Code Status on File) Date Activated Date Inactivated Comments 03/03/2023 3:13 PM 03/04/2023 6:26 PM * Full Code Date Activated Date Inactivated Comments 03/02/2023 7:54 PM 03/03/2023 3:13 PM Care Teams Truss Driver Helper Relationship Specialty Start Date End Date Yasmine Paz MD [address] [place] [address] PCP - General Internal Medicine 12/27/20
--- OUTSIDE RECORDS SUMMARY | 2024-12-05 15:09 | XMS_ITS | Clinical Summary ---
Author Organization [facility] Address [facility] [place] [address] Care Team Providers Care Staging Technician Name Role Phone Yasmine Paz MD Primary Care Provider + [phone] Allergies No known active allergies Medications folic [...] (05/20/2022 2:01 PM CDT): She has a jhfg-cx-eeftwiku bilateral sensorineural hearing loss. I talked with [...] hypertension 01/24/2021 Nonrheumatic aortic valve insufficiency 01/25/20 21 Nonrheumatic mitral valve regurgitation 01/25/20 21 Encounters Date Type Department Care Team Description 09/16/2024 4:00 PM STUDENT RECRUITER Office Visit [facility] Cardiology [address] [facility] [address] [place] [phone] Rod Garcia MD Nonrheumatic aortic valve insufficiency (Primary Dx); Status post insertion of drug eluting coronary artery stent 09/15/2024 Telephone [facility] Cardiology [address] [place] [address] Rod Garcia MD from Last 3 Months Surgical History Surgery Date Site/Laterality Comments ROTATOR CUFF REPAIR BACK SURGERY CATARACT EXTRACTION 2021 Medical History Medical History Date Comments Hypertension Pneumonia Arthritis Heart disease Ear problems Tympanic membrane rupture, left Cataract 2020 Family History Medical History Relation Name Comments Heart attack Father Feliz Valvular heart disease Maternal Grandmother Cancer Mother Autumn Scleroderma Sister Relation Name Status Comments Father Feliz (Age 69) Maternal Grandmother Mother Autumn (Age 56) Sister (Age 72) Social History Tobacco Use Types Packs/Day Years Used Date Smoking Tobacco: Former Cigarettes Q uit: 2014 Smokeless Tobacco: Never Tobacco Cessation:Counseling Given: Not [...] often do you attend chur ch or scientology services? Never 03/03/2023 Do you belong to any clubs o r organizations such as shinto groups, unions, fraternal or athletic groups, or [...] place to sleep or slept in a correction (including now)? No 03/03/2023 Personal Safety Answer Date Recorded Have you ever been in or are you currently in a harmful physical or emotional relationship or is someone making you feel afraid or unsafe? Denies 03/02/2023 Comments Unknown Sex and Gender Information Value Date Recorded Sex Assigned at Not on file Legal Sex Female 8:52 AM CDT Gender Identity Female 07/25/2021 1:37 PM STUDENT RECRUITER Sexual Orientation Straight 07/25/2021 1: 37 PM STUDENT RECRUITER Obstetrics History Last Filed Vital Signs Vital Sign Reading Time Taken Comments Blood Pressure 160/54 09/16/2024 3:54 PM STUDENT RECRUITER Pulse 77 09/16/2024 3:54 PM STUDENT RECRUITER Temperature 36.9 C (98.5 F) 03/04/2023 8:10 AM CDT Respiratory Rate 16 03/04/2023 8:10 AM CDT Oxygen Saturation 96% 09/16/2024 3:54 PM STUDENT RECRUITER Inhaled Oxygen Concentration - - Weight 54.7 kg (120 lb 8 oz) 09/16/2024 3:54 PM STUDENT RECRUITER Height 151.1 cm (4' 11.5 ) 09/16/2024 3:54 PM CS T Body Mass Index 23.93 09/16/2024 3:54 PM STUDENT RECRUITER Plan of Treatment Health Maintenance Due Date Last Done Comments Depression Screening 1941 Osteoporosis Screening-Bone Density Scan 1941 DTaP/Tdap/Td Vaccine (1 - Tdap) 1952 Hepatitis B Screening 1959 Well Visit 65+ 2006 Fall Risk Assessment 03/04/2024 03/04/2023 Covid-19 Vaccine ( season) 2024, 08/24/2020 Influenza Vaccine (Season Ended) 2025 05/08/20 Pneumococcal vaccine 65+ Completed 11/15/2020, 04/20 Zoster Vaccine Completed 03/10/2021, 12/17/2020 Medical Devices Implanted Type Area Curtain Stretcher Device Identifier Shelf Expiration Date Model / Serial / Lot [employer] Camilla Stent Coronary Drug Eluting Rapid Exchange Synergy Megatron 3.95d83ki [place] Chromium [id number] - [id number] - [id number] Implanted:Qty : 1 on 03/03/2023 by Morgan Cassidy MD at [facility] Stent Left: Anterior Descending Cornary Artery [employer] Camilla 03/11/2023 [id number] / [id number] / [id number] [employer] Camilla Synergy Xd Monorail 2.5mm 48mm 144cm Delivery System 1 Access [id number] - [id number] - [id number] Implanted:Qty : 1 on 03/03/2023 by Morgan Cassidy MD at [facility] Stent Left: Anterior Descending Cornary Artery [employer] Camilla 07/22/2024 [id number] / [id number] / [id number] Vasorum Ltd Device 6fr Closure Celt Acd Vascular Sterile Latex Free Disposable [facility]-06 - [id number] - [id number] Implanted:Qty : 1 on 03/03/2023 by Morgan Cassidy MD at [facility] Vascular Closure Device Right: Common Femoral Artery [employer] 07/30/2025 [facility]-06 / [id number] / [id number] Procedures Procedure Name Priority Date/Time Associated Diagnosis Comments ELECTROCARDIOGRAM REPORT Routine 025 3:15 PM STUDENT RECRUITER Nonrheumatic aortic valve insufficiency from Last 3 Months Results * Electrocardiogram Report (09/16/2024 3:15 PM STUDENT RECRUITER) Rod Garcia MD ECG ORDERABLES Final Re sult from Last 3 [place] [address] [facility] MEDICARE ADVANTAGE [facility] MDCR HMO REF [facility] MEDICARE ADVANTAGE Advance Directives For more information, please contact: [phone] * Full Code (Latest Code Status on File) Date Activated Date Inactivated Comments 03/03/2023 3:13 PM 03/04/2023 6:26 PM * Full Code Date Activated Date Inactivated Comments 03/02/2023 7:54 PM 03/03/2023 3:13 PM Care Teams Staging Technician Relationship Specialty Start Date End Date Yasmine Paz MD [address] [place] [address] PCP - General Internal Medicine 12/27/20
== END 2024-12-05 15:06 | disposition home or self-care (01) ==
LOC: CHSIMG 15:07
PROVIDERS: PCP Internal Medicine; Visit Provider Nurse Practitioner Family
DX: S99.911A Unspecified injury of right ankle, initial encounter (principal)
CPT/HCPCS: 73610

== ENCOUNTER 2025-01-26 13:39 | Outpatient (CLI) | payer MEDICARE, SELFPAY ==
--- NOTE | ~2025-01-26 | US_ITS ---
EXAMINATION: US carotid duplex BI DATE: 01/26/2025 16:25 CDT INDICATION: Stenosis TECHNIQUE: Grayscale, color Doppler, and pulsed Doppler images of the cervical carotid arteries were obtained. The degree of vessel stenosis is placed in one of the following categories: normal, <50%, 50-69%, >=7 0% but less than near-occlusion, near-occlusion, or total occlusion. Note that percent stenosis relative to normal distal artery lumen diameter is indirectly measured fro m velocity measurements as described originally by Philippe, et al. Radiology 2003; 229:340-346 and upda federico by Elvis Walden et al STROKE 2012;43(3);915-921. COMPARISON: 11/19/2020 FINDINGS: There is mild atherosclerosis of both carotid arteries. Peak systolic velocity (in cm/s) is detailed below RIGHT: Right common carotid artery (CCA): 87 cm/s. Right internal carotid artery (ICA) PSV: 145 cm/s. Right ICA end-diastolic velocity (EDV): 15 cm/s. Right ICA/CCA PSV ratio is 1.7. Right external carotid artery (ECA): 232cm/s. There is antegrade flow in the right vertebral artery LEFT: Left common carotid artery (CCA): 101 cm/s. Left internal carotid artery (ICA) PSV: 126 cm/s. Left ICA end-diastolic velocity (EDV): 19 cm/s. Left ICA/CCA PSV ratio is 1.2. Left external carotid artery (ECA): 180cm/s. There is antegrade flow in the left vertebral artery. IMPRESSION: 1. 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 2. Less than 50% stenosis in the left internal carotid artery, with an increase in the peak systolic velocity of the left internal carotid artery when compared with 2020. Reviewed, dictated and finalized at location A. IMPRESSION: 1. 50-69% stenosis in the right internal carotid artery, an interval change fro m 2020. 2. Less than 50% stenosis in the left internal carotid artery, with an increase in the peak systolic velocity of the left internal carotid artery when compare d with 2020.
--- OUTSIDE RECORDS SUMMARY | 2025-01-26 13:43 | XMS_ITS | Clinical Summary ---
Author Organization [facility] Address [facility] [place] [address] Care Team Providers Care Button Machine Operator Name Role Phone Yasmine Paz MD Primary Care Provider + [phone] Allergies No known active allergies Medications folic [...] 7.5 mg by mouth daily 4 Active metoprolol XL (TOPROL-XL) 25 mg extended release tablet Take 1 tablet (25 mg total) by mouth daily 90 tablet 2 5 09/16/19 26 Active clopidogreL (PLAVIX) 75 mg tablet TAKE 1 TABLET BY MOUTH EVERY DAY 90 tablet 2 5 Active Active Problems Problem Noted Date Diagnosed Date Status post insertion of drug eluting coronary a rtery stent 04/02/2023 Calculus of gallbladder with acute on chronic cholecystitis without obstruction 03/04/2023 ACS (acute coronary syndrome) 03/03/2023 STEMI (ST elevation myocardial infarction) 03/02 Sensorineural hearing loss (SNHL) of both ears 1 07/20/2021 Assessment & Plan (05/20/2022 2:01 PM CDT): She has a wqaj-km-cvopjstg bilateral sensorineural hearing loss. I talked with [...] Encounters Date Type Department Care Team Description 01/03/2025 1:15 PM CDT Office Visit [facility] Group Cardiology at [address] [place] [address] Rod Garcia MD Status post insertion of drug eluting coronary artery stent (Primary Dx); Nonrheumatic aortic valve insufficiency; Nonrheumatic mitral valve regurgitation from Last 3 Months Surgical History Surgery [...] often do you attend chur ch or scientologist services? Never 03/03/2023 Do you belong to any clubs o r organizations such as rastafari groups, unions, fraternal or athletic groups, or [...] place to sleep or slept in a long-term (including now)? No 03/03/2023 Personal Safety Answer Date Recorded Have you ever been in or are you currently in a harmful physical or emotional relationship or is someone making you feel afraid or unsafe? Denies 03/02/2023 Comments Unknown Sex and Gender Information Value Date Recorded Sex Assigned at Not on file Legal Sex Female 8:52 AM CDT Gender Identity Female 07/25/2021 1:37 PM DISTRIBUTION CENTER ADMINISTRATOR Sexual Orientation Straight 07/25/2021 1: 37 PM DISTRIBUTION CENTER ADMINISTRATOR Obstetrics History Last Filed Vital Signs Vital Sign Reading Time Taken Comments Blood Pressure 160/58 01/03/2025 12:50 PM CDT Pulse 68 01/03/2025 12:50 PM CDT Temperature 36.9 C (98.5 F) 03/04/2023 8:10 AM CDT Respiratory Rate 16 03/04/2023 8:10 AM CDT Oxygen Saturation 99% 01/03/2025 12:50 PM CDT Inhaled Oxygen Concentration - - Weight 54.4 kg (120 lb) 01/03/2025 12:50 PM CDT Height 151.1 cm (4' 11.5) 01/03/2025 12:50 PM C DT Body Mass Index 23.83 01/03/2025 12:50 PM CDT Plan of Treatment Health Maintenance Due Date [...] 03/10/2021, 12/17/2020 Medical Devices Implanted Type Area Interactive Producer Device Identifier Shelf Expiration Date Model / Serial / Lot [employer] Camilla Stent Coronary Drug Eluting Rapid Exchange Synergy Megatron 3.12d29io [place] [employer] [id number] - [id number] - [id number] Implanted:Qty : 1 on 03/03/2023 by Morgan Cassidy MD at [facility] Stent Left: Anterior Descending Cornary Artery [employer] Camilla 03/11/2023 [id number] / [id number] / [id number] [employer] Synergy Xd Monorail 2.5mm 48mm 144cm Delivery System 1 Access [id number] - [id number] - [id number] Implanted:Qty : 1 on 03/03/2023 by Morgan Cassidy MD at [facility] Stent Left: Anterior Descending Cornary Artery [employer] Camilla 07/22/2024 [id number] / [id number] / [id number] [employer] Ltd Device 6fr Closure Celt Acd Vascular Sterile Latex Free Disposable [facility]-06 - [id number] - [id number] Implanted:Qty : 1 on 03/03/2023 by Morgan Cassidy MD at [facility] Vascular Closure Device Right: Common Femoral Artery [employer] 07/30/2025 [facility] / [id number] / [id number] [place] [address] [facility] MEDICARE ADVANTAGE [facility] MDCR HMO REF [facility] MEDICARE ADVANTAGE Advance Directives For more information, please contact: [phone] * Full Code (Latest Code Status on File) Date Activated Date Inactivated Comments 03/03/2023 3:13 PM 03/04/2023 6:26 PM * Full Code Date Activated Date Inactivated Comments 03/02/2023 7:54 PM 03/03/2023 3:13 PM Care Teams Button Machine Operator Relationship Specialty Start Date End Date Yasmine Paz MD [address] [place] [address] PCP - General Internal Medicine 12/27/20
--- OUTSIDE RECORDS SUMMARY | 2025-01-26 13:43 | XMS_ITS | Patient Health Record ---
Author Organization [facility] Address [address] [place], [place] [address] Care Team Providers Care Weigher Production Name Role Phone Ze Richter Unavailable Unavailable Reason For Referral No Information Medications Medication SIG (Take, Route, Frequency, Duration) Notes Start Date End Date Status Nabumetone 500 MG Oral Tablet ORAL nabumetone 500 MG Oral TabletOriginal Medicationnabumetone 500 MG Oral Tablet *Reorder from Tapactive for eRx and Interaction Alerts* 06/20/2016 Active Plan Of Treatment No Information Insurance Providers Payer Name Payer Address Payer Phone Subscriber Number Group Number Insured Name Patient Relationship to Insured Coverage Start Date Coverage End Date Medicare Part B [place] [address] [place] [phone] [id number] ROZINA SEALS Self - patient is the insured [facility] ([facility]) ATTN CLAIMS [address] [place] [address] [id number] ROZINA SEALS Self - patient is the insured
--- OUTSIDE RECORDS SUMMARY | 2025-01-26 13:43 | XMS_ITS | Referral Summary ---
Author Organization 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 I talked with [...] 21 Nonrheumatic mitral valve regurgitation 01/25/20 21 Social History Tobacco Use Types Packs/Day Years [...] often do you attend chur ch or evangelical services? Never 03/03/2023 Do you belong to any clubs o r organizations such as orthodoxy groups, unions, fraternal or athletic groups, or [...] place to sleep or slept in a retirement (including now)? No 03/03/2023 Personal Safety Answer Date Recorded Have you ever been in or are you currently in a harmful physical or emotional relationship or is someone making you feel afraid or unsafe? 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 Last Filed Vital Signs Vital Sign Reading [...] 01/03/2025 12:50 PM CDT Plan of Treatment Not on file Medical Devices Implanted Type Area Salesperson Toy Trains [employer] Accessories Device Identifier Shelf Expiration Date Model / Serial / Lot [employer] Camilla Stent Coronary Drug Eluting Rapid Exchange Synergy Megatron 3.01x11aw [place] Chromium [id number] - [id number] - [id number] Implanted:Qty : 1 on 03/03/2023 by Morgan Cassidy MD at [facility] Stent Left: Anterior Descending Cornary Artery [employer] Camilla 03/11/2023 [id number] / [id number] / [id number] [employer] Camilla Synergy Xd Monorail 2.5mm 48mm 144cm Delivery System 1 Access [id number] - [id number] - [id number] Implanted:Qty : 1 on 03/03/2023 by Morgan Cassidy MD at [facility] Stent Left: Anterior Descending Cornary Artery [employer] Camilla 07/22/2024 [id number] / [id number] / [id number] [employer] Device 6fr Closure Celt Acd Vascular Sterile Latex Free Disposable [facility]-06 - [id number] - [id number] Implanted:Qty : 1 on 03/03/2023 by Morgan Cassidy MD at [facility] Vascular Closure Device Right: Common Femoral Artery [employer] 07/30/2025 KCLT-[id number] / [id number] / [id number] [place] [address] [facility] MEDICARE ADVANTAGE [facility] MEDIC[facility] Address: [address] [address] [place] [address] [facility] MDCR HMO REF [facility] MEDIC[facility] Address: [address] [address] [place] [address] [employer] MEDICARE ADVANTAGE [facility] MEDIC[facility] Address: [address] [address] [place] [address] Advance Directives For more information, please contact: [phone] * Full Code (Latest Code Status on File) Date Activated Date Inactivated Comments 03/03/2023 3:13 PM 03/04/2023 6:26 PM * Full Code Date Activated Date Inactivated Comments 03/02/2023 7:54 PM 03/03/2023 3:13 PM Care Teams Dry Charge Process Attendant Relationship Specialty Start Date End Date Yasmine Paz MD [address] [id number] PCP - General Internal Medicine 12/27/20
== END 2025-01-26 13:40 | disposition home or self-care (01) ==
LOC: CHSIMG 13:41
PROVIDERS: PCP Internal Medicine; Visit Provider Internal Medicine
DX: I65.23 Occlusion and stenosis of bilateral carotid arteries (principal)
CPT/HCPCS: 93880